=== PATIENT | male | born 1965 | race African-American/Black ===

== ENCOUNTER 2016-08-30 10:49 | Inpatient (IN) | payer OTHER ==
[2016-08-30 12:14] VITALS: BMI 32.5
--- NOTE | 2016-08-30 13:53 | HP ---
CIWA Score - CIWA Score Nausea/Vomitin Muscle Tremors: 3 Anxiety: 3 Agitation: 3 Paroxysmal Sweats: 2 Orientation: 0-Oriented Tacttile Disturbances: 2-Mild Itch/Numbness/Burn Auditory Disturbances: 2-Mild Harshness/Frighten Visual Disturbances: 2-Mild Sensitivity Headache: 2-Mild CIWA-Ar Total Score: 22 Admission ROS BHS - HPI Chief Complaint: I NEED HELP TO STOP DRINKING ALCOHOL,COCAINE Allergies/Adverse Reactions: Allergies Allergy/AdvReac Type Severity Reaction Status Date / Time No Known Allergies Allergy Verified 08/30/16 13:23 History of Present Illness: THIS 51 YEARS OLD MALE WITH ALCOHOL AND DEPENDENCE,WITHDRAWAL SYMPTOM,NEVER BEEN IN DETOX BEFORE MMTP 50 MGS/DAY,LAST MEDICATED TODAY HTN ARTHRITIS BOTH KNEES AMBULATION WITH CANE TYPE 2 DM NICOTINE DEPENDENCE Exam Limitations: No Limitations - Ebola screening Have you traveled outside of the country in the last 21 days: No Have you been sick,other than usual withdrawal symptoms: No - Review of Systems Constitutional: Loss of Appetite, Malaise, Night Sweats, Changes in sleep, Weakness EENT: reports: Nose Congestion Respiratory: reports: No Symptoms reported Cardiac: reports: No Symptoms Reported GI: reports: Diarrhea, Nausea, Vomiting, Abdominal cramping : reports: No Symptoms Reported Musculoskeletal: reports: Back Pain, Muscle Pain Integumentary: reports: Dryness Neuro: reports: Headache, Tremors Endocrine: reports: No Symptoms Reported Hematology: reports: No Symptoms Reported Psychiatric: reports: No Sypmtoms Reported Patient History - Patient Medical History Hx Anemia: No Hx Asthma: Yes (ALBUTRO AND SYMBICORT) Hx Chronic Obstructive Pulmonary Disease (COPD): No Hx Cancer: No Hx Cardiac Disorders: No Hx Congestive Heart Failure: No Hx Hypertension: Yes (ON MED) Hx Hypercholesterolemia: Yes (NO MED) Hx Pacemaker: No HX Cerebrovascular Accident: No Hx Seizures: No Hx Dementia: No Hx Diabetes: Yes (NO MED) Hx Gastrointestinal Disorders: No Hx Liver Disease: No Hx Genitourinary Disorders: No Hx Sexually Transmitted Disorders: No Hx Renal Disease (ESRD): No Hx Thyroid Disease: No Hx Human Immunodeficiency Virus (HIV): No (2014 LAST NEGATIVE) Hx Hepatitis C: No Hx Depression: No Hx Suicide Attempt: No Hx Bipolar Disorder: No Hx Schizophrenia: No Other Medical History: NO SUICIDAL,NO HOMICIDAL - Patient Surgical History Past Surgical History: Yes Other Surgical History: LIPOMA OF FRONTAL AREA RECURRENT - Smoking Cessation Smoking history: Current every day smoker Have you smoked in the past 12 months: Yes Aproximately how many cigarettes per day: 30 Cigars Per Day: 0 Hx Chewing Tobacco Use: No Initiated information on smoking cessation: Yes 'Breaking Loose' booklet given: 08/30/16 - Substance & Tx. History Hx Alcohol Use: Yes Hx Substance Use: Yes Substance Use Type: Alcohol, Cocaine Hx Substance Use Treatment: No - Substances Abused Alcohol Route: Oral Frequency: Daily Amount used: vodka(1-2 pints) Age of first use: 12 Date of Last Use: 08/29/16 Cocaine Route: Smoking Frequency: Daily Amount used: $100 Age of first use: 23 Date of Last Use: 08/29/16 Family Disease History - Family Disease History Family History: Denies Admission Physical Exam BHS - Vital Signs Vital Signs: Vital Signs - 24 hr 08/30/16 12:11 Temperature 98.0 F Pulse Rate 73 Respiratory 20 Rate Blood Pressure 122/72 - Physical General Appearance: Yes: Moderate Distress, Tremorous, Irritable, Sweating, Anxious HEENTM: Yes: Nasal Congestion, Rhinorrhea Respiratory: Yes: Lungs Clear Neck: Yes: Within Normal Limits Breast: Yes: Within Normal Limits Cardiology: Yes: Within Normal Limits, Regular Rhythm, Regular Rate, S1, S2 Abdominal: Yes: Within Normal Limits, Normal Bowel Sounds, Non Tender, Flat, Soft Genitourinary: Yes: Within Normal Limits Back: Yes: Muscle Spasm Musculoskeletal: Yes: Back pain, Muscle Pain Extremities: Yes: Tremors Neurological: Yes: emt dispatcher II-XII NML intact, Fully Oriented, Alert, Motor Strength 5/5 Integumentary: Yes: Dry Lymphatic: Yes: Within Normal Limits - Diagnostic (1) Alcohol dependence with uncomplicated withdrawal Current Visit: Yes Status: Acute (2) Cocaine dependence Current Visit: Yes Status: Acute (3) Methadone maintenance therapy patient Current Visit: Yes Status: Acute (4) Essential hypertension Current Visit: Yes Status: Acute (5) Arthritis of both knees Current Visit: Yes Status: Acute (6) Neuropathy Current Visit: Yes Status: Acute (7) Diabetes mellitus type 2 in obese Current Visit: Yes Status: Acute (8) Use of cane as ambulatory aid Current Visit: Yes Status: Acute (9) Nicotine dependence Current Visit: Yes Status: Acute (10) Asthma Current Visit: Yes Status: Acute Cleared for Admission [facility] - Detox or Rehab [facility] Level of Care: Medically Managed Detox Regimen/Protocol: Librium [facility] Breath Alcohol Content Breath Alcohol Content: 0 Urine Drug Screen - Results Drug Screen Negative: No Urine Drug Screen Results: CASEY-Cocaine, OPI-Opiates, MTD-Methadone, OXY- Oxycodone
[2016-08-30] MEDS ORDERED: MENTHOL/PHENOL 1 EACH UD MM PRN (14:10)
[2016-08-30] MEDS ORDERED: diphenhydrAMINE HCL 50 MG CAPSULE PO PRN (14:10)
[2016-08-30] MEDS ORDERED: MAG HYDROX/AL HYDROX/SIMETH 30 ML UNIT-DOSE CUP PO PRN (14:10)
[2016-08-30] MEDS ORDERED: MAGNESIUM CITRATE 300 ML BOTTLE PO PRN (14:10)
[2016-08-30] MEDS ORDERED: hydrOXYzine PAMOATE 50 MG CAPSULE (FP) PO PRN (14:10)
[2016-08-30] MEDS ORDERED: IBUPROFEN 400 MG TABLET (FP) PO PRN ×2 (14:10→14:20)
[2016-08-30] MEDS ORDERED: chlordiazePOXIDE HCL 25 MG CAPSULE PO PRN (14:10)
[2016-08-30] MEDS ORDERED: guaiFENesin/D-METHORPHAN HB 10 ML UNIT-DOSE CUPS PO PRN (14:10)
[2016-08-30] MEDS ORDERED: MAGNESIUM HYDROX 2400MG/30ML ORAL SUSPENSION 30 ML CUP PO PRN (14:10)
[2016-08-30] MEDS ORDERED: P-EPHED 60MG/TRIPROLIDI 2.5MG TABLET PO PRN (14:10)
[2016-08-30] MEDS ORDERED: ACETAMINOPHEN 325 MG TABLET (FP) PO PRN (14:10)
[2016-08-30] MEDS ORDERED: LOPERAMIDE HCL 2 MG CAPSULE PO PRN (14:10)
[2016-08-30] MEDS ORDERED: ALBUTEROL SO4 6.7 GM HFA INHALER IH PRN (14:13)
[2016-08-30] MEDS ORDERED: chlordiazePOXIDE HCL 25 MG CAPSULE PO ONE (14:45)
[2016-08-30] MEDS: NICOTINE 21 MG/24 HOURS TOPICAL PATCH TD SCH (15:27)
[2016-08-30] MEDS: chlordiazePOXIDE HCL 25 MG CAPSULE PO SCH ×2 (17:29→22:29)
[2016-08-30] MEDS: TOLNAFTATE 1% CREAM 15 GM TUBE TP SCH (22:28)
[2016-08-30] MEDS: GABAPENTIN 300 MG CAPSULE (FP) PO SCH (22:28)
[2016-08-30] MEDS: THIAMINE HCL 100 MG TABLET (FP) PO SCH (22:28)
[2016-08-30] MEDS: BUDESONIDE/FORMETEROL FUMARATE 160/4.5 mcg INHALER IH SCH (22:28)
[2016-08-31] MEDS: chlordiazePOXIDE HCL 25 MG CAPSULE PO SCH ×4 (06:34→22:29)
[2016-08-31] MEDS: GABAPENTIN 300 MG CAPSULE (FP) PO SCH ×3 (06:34→22:27)
[2016-08-31] MEDS ORDERED: METHADONE HCL 40 MG DISPERSABLE TABLET PO ONE (08:49)
[2016-08-31] MEDS: PRENATAL VITAMINS W/ FOLIC ACID TABLET (FP) PO SCH (10:15)
[2016-08-31] MEDS: TOLNAFTATE 1% CREAM 15 GM TUBE TP SCH ×2 (10:15→22:28)
[2016-08-31] MEDS: BUDESONIDE/FORMETEROL FUMARATE 160/4.5 mcg INHALER IH SCH ×2 (10:15→22:28)
[2016-08-31] MEDS: HYDROCHLOROTHIAZIDE 25 MG TABLET (FP) PO SCH (10:15)
[2016-08-31] MEDS: NICOTINE 21 MG/24 HOURS TOPICAL PATCH TD SCH (10:16)
--- NOTE | 2016-08-31 10:38 | PN ---
S CIWA - CIWA Score Nausea/Vomitin Muscle Tremors: 3 Anxiety: 3 Agitation: 3 Paroxysmal Sweats: 1-Minimal Palms Moist Orientation: 0-Oriented Tacttile Disturbances: 1-Very Mild Itch/Numbness Auditory Disturbances: 1-Very Mild Visual Disturbances: 1-Very Mild Sensitivity Headache: 2-Mild CIWA-Ar Total Score: 18 BHS Progress Note (SOAP) Subjective: ALERT,IRRITABLE,ANXIOUS,INTERRUPTED SLEEP,TREMOR Objective: 08/31/16 10:35 Vital Signs Temperature 97.2 F L 08/31/16 09:42 Pulse Rate 83 08/31/16 09:42 Respiratory Rate 20 08/31/16 09:42 Blood Pressure 117/77 08/31/16 09:42 O2 Sat by Pulse Oximetry (%) EKG NSR RIGHT BBB NO CHEST PAIN,NO SOB,NO DIZZINESS Laboratory Last Values POC Glucometer 139 UNITS (()) 08/31/16 06:38 LABS PENDING Assessment: 08/31/16 10:37 WITHDRAWAL SYMPTOM Plan: CONTINUE DETOX,BGM MONITORING
[2016-08-31 11:19] LABS: MCH 27.8 pg (25.7-33.7); MCHC 33.2 g/dl (32.0-35.9); MEAN CELL VOLUME 83.6 fl (80-96); MEAN PLT VOLUME 7.8 fl (7.5-11.1); PLATELET COUNT 327 K/MM3 (134-434); RDW 15.4 % (11.9-15.9); WHITE BLOOD COUNT 8.7 K/mm3 (4.0-10.0)
[2016-08-31 11:35] LABS: ALBUMIN 4.2 g/dl (3.4-5.0); ANION GAP 7 (8-16); CALCIUM 9.3 mg/dL (8.5-10.1); CO2 27 mmol/L (21-32); CREATININE 1.2 mg/dL (0.7-1.3); GLUCOSE,RANDOM 118 mg/dL (74-106); SGOT/AST 13 U/L (15-37); SGPT/ALT 23 U/L (12-78)
[2016-08-31 11:37] LABS: ALK PHOS 53 U/L (45-117); BILIRUBIN,TOTAL 0.6 mg/dL (0.2-1.0); TOT PROT 7.8 g/dl (6.4-8.2)
[2016-08-31] MEDS ORDERED: ALBUTEROL SO4 2.5/IPRATROPIUM 0.5 INH SOL 3 ML VIAL.NEB. NEB PRN (13:11)
[2016-08-31] MEDS: THIAMINE HCL 100 MG TABLET (FP) PO SCH (22:28)
[2016-09-01] MEDS: chlordiazePOXIDE HCL 25 MG CAPSULE PO SCH ×2 (06:02→10:11)
[2016-09-01] MEDS: METHADONE HCL 40 MG DISPERSABLE TABLET PO SCH (06:02)
[2016-09-01] MEDS: GABAPENTIN 300 MG CAPSULE (FP) PO SCH ×3 (06:02→22:45)
[2016-09-01] MEDS: PRENATAL VITAMINS W/ FOLIC ACID TABLET (FP) PO SCH (10:11)
[2016-09-01] MEDS: HYDROCHLOROTHIAZIDE 25 MG TABLET (FP) PO SCH (10:11)
[2016-09-01] MEDS: BUDESONIDE/FORMETEROL FUMARATE 160/4.5 mcg INHALER IH SCH ×2 (10:12→22:45)
[2016-09-01] MEDS: NICOTINE 21 MG/24 HOURS TOPICAL PATCH TD SCH (10:12)
[2016-09-01] MEDS: TOLNAFTATE 1% CREAM 15 GM TUBE TP SCH ×2 (10:13→22:46)
--- NOTE | 2016-09-01 10:34 | PN ---
S CIWA - CIWA Score Nausea/Vomitin Muscle Tremors: 3 Anxiety: 2 Agitation: 2 Paroxysmal Sweats: 1-Minimal Palms Moist Orientation: 0-Oriented Tacttile Disturbances: 1-Very Mild Itch/Numbness Auditory Disturbances: 1-Very Mild Visual Disturbances: 1-Very Mild Sensitivity Headache: 2-Mild CIWA-Ar Total Score: 16 S Progress Note (SOAP) Subjective: ALERT,IRRITABLE,ANXIOUS,INTERRUPTED SLEEP,TREMOR Objective: 09/01/16 10:32 Vital Signs Temperature 97.0 F L 09/01/16 09:48 Pulse Rate 90 09/01/16 09:48 Respiratory Rate 20 09/01/16 09:48 Blood Pressure 142/78 09/01/16 09:48 O2 Sat by Pulse Oximetry (%) 09/01/16 10:32 Laboratory Last Values WBC 8.7 K/mm3 (4.0-10.0) 08/31/16 06:00 RBC 4.66 M/mm3 (4.00-5.60) 08/31/16 06:00 Hgb 12.9 GM/dL (11.7-16.9) 08/31/16 06:00 Hct 38.9 % (35.4-49) 08/31/16 06:00 MCV 83.6 fl (80-96) 08/31/16 06:00 MCHC 33.2 g/dl (32.0-35.9) 08/31/16 06:00 RDW 15.4 % (11.9-15.9) 08/31/16 06:00 Plt Count 327 K/MM3 (134-434) 08/31/16 06:00 MPV 7.8 fl (7.5-11.1) 08/31/16 06:00 Sodium 142 mmol/L (136-145) 08/31/16 06:00 Potassium 3.8 mmol/L (3.5-5.1) 08/31/16 06:00 Chloride 108 mmol/L (98-107) H 08/31/16 06:00 Carbon Dioxide 27 mmol/L (21-32) 08/31/16 06:00 Anion Gap 7 (8-16) L 08/31/16 06:00 BUN 19 mg/dL (7-18) H 08/31/16 06:00 Creatinine 1.2 mg/dL (0.7-1.3) 08/31/16 06:00 Creat Clearance w eGFR > 60 (>60) 08/31/16 06:00 POC Glucometer 138 UNITS (()) 09/01/16 06:00 Random Glucose 118 mg/dL (74-106) H 08/31/16 06:00 Calcium 9.3 mg/dL (8.5-10.1) 08/31/16 06:00 Total Bilirubin 0.6 mg/dL (0.2-1.0) 08/31/16 06:00 AST 13 U/L (15-37) L 08/31/16 06:00 ALT 23 U/L (12-78) 08/31/16 06:00 Alkaline Phosphatase 53 U/L (45-117) 08/31/16 06:00 Total Protein 7.8 g/dl (6.4-8.2) 08/31/16 06:00 Albumin 4.2 g/dl (3.4-5.0) 08/31/16 06:00 RPR Titer Nonreactive (NONREACTIVE) 08/31/16 06:00 Assessment: 09/01/16 10:33 WITHDRAWAL SYMPTOM Plan: CONTINUE DETOX,PATIENT REQUESTED REGULAR DIET,BGM MONITORING
[2016-09-01] MEDS: chlordiazePOXIDE 5 MG CAPSULE PO SCH ×2 (17:27→22:46)
[2016-09-01] MEDS: THIAMINE HCL 100 MG TABLET (FP) PO SCH (22:46)
[2016-09-02] MEDS: METHADONE HCL 40 MG DISPERSABLE TABLET PO SCH (05:44)
[2016-09-02] MEDS: chlordiazePOXIDE 5 MG CAPSULE PO SCH ×2 (05:45→10:30)
[2016-09-02] MEDS: GABAPENTIN 300 MG CAPSULE (FP) PO SCH ×2 (07:24→14:51)
[2016-09-02] MEDS: HYDROCHLOROTHIAZIDE 25 MG TABLET (FP) PO SCH (10:29)
[2016-09-02] MEDS: PRENATAL VITAMINS W/ FOLIC ACID TABLET (FP) PO SCH (10:29)
[2016-09-02] MEDS: NICOTINE 21 MG/24 HOURS TOPICAL PATCH TD SCH (10:30)
[2016-09-02] MEDS: BUDESONIDE/FORMETEROL FUMARATE 160/4.5 mcg INHALER IH SCH (10:30)
[2016-09-02] MEDS: TOLNAFTATE 1% CREAM 15 GM TUBE TP SCH (10:30)
[2016-09-02 11:06] LABS: URINE APPEARANCE CLOUDY; URINE BILIRUBIN NEGATIVE (NEGATIVE); URINE BLOOD NEGATIVE (NEGATIVE); URINE COLOR LTYELLOW; URINE GLUCOSE (UA) 3+ (NEGATIVE); URINE KETONE NEGATIVE (NEGATIVE); URINE LEUK ESTERASE NEGATIVE (NEGATIVE); URINE NITRITE NEGATIVE (NEGATIVE); URINE PROTEIN NEGATIVE (NEGATIVE); URINE UROBILINOGEN 2.0 E.U/dl E.U./dl (0.2-1.0)
[2016-09-02] MEDS ORDERED: LIDOCAINE 5% TOPICAL PATCH TP SCH (12:45)
--- NOTE | 2016-09-02 12:49 | PN ---
BHS Progress Note (SOAP) Subjective: SWEATING,INTERRUPTED SLEEP,RESTLESS.SEVERE JOINT PAIN. Objective: 09/02/16 12:49 Vital Signs - 8 hr 09/02/16 09/02/16 06:12 09:36 Temperature 98.1 F 98.7 F Pulse Rate 79 86 Respiratory 18 18 Rate Blood Pressure 147/86 124/77 Laboratory Tests 08/30/16 08/31/16 08/31/16 13:56 06:00 06:00 WBC 8.7 RBC 4.66 Hgb 12.9 Hct 38.9 MCV 83.6 MCHC 33.2 RDW 15.4 Plt Count 327 MPV 7.8 Sodium 142 Potassium 3.8 Chloride 108 H Carbon Dioxide 27 Anion Gap 7 L BUN 19 H Creatinine 1.2 Creat Clearance w eGFR > 60 POC Glucometer 127 Random Glucose 118 H Calcium 9.3 Total Bilirubin 0.6 AST 13 L ALT 23 Alkaline Phosphatase 53 Total Protein 7.8 Albumin 4.2 Urine Color Urine Appearance Urine pH Ur Specific Goodman Urine Protein Urine Glucose (UA) Urine Ketones Urine Blood Urine Nitrite Urine Bilirubin Urine Urobilinogen Ur Leukocyte Esterase RPR Titer 09/02/16 09/02/16 05:43 07:00 WBC RBC Hgb Hct MCV MCHC RDW Plt Count MPV Sodium Potassium Chloride Carbon Dioxide Anion Gap BUN Creatinine Creat Clearance w eGFR POC Glucometer 243 Random Glucose Calcium Total Bilirubin AST ALT Alkaline Phosphatase Total Protein Albumin Urine Color Ltyellow Urine Appearance Cloudy Urine pH 7.0 Ur Specific Goodman 1.020 Urine Protein Negative Urine Glucose (UA) 3+ H Urine Ketones Negative Urine Blood Negative Urine Nitrite Negative Urine Bilirubin Negative Urine Urobilinogen 2.0 e.u/dl Ur Leukocyte Esterase Negative RPR Titer LABS NOTED Assessment: 09/02/16 12:50 WITHDRAWAL SX. Plan: CONTINUE DETOX LIDODERM PATCH TO JOINTS
[2016-09-02 15:21] VITALS: BP 115/72; PULSE 74; TEMP 97.1
--- NOTE | 2016-09-02 15:31 | DS ---
[facility] Detox Discharge Summary Admission Date: 08/30/16 Discharge Date: 09/02/16 - History Present History: Alcohol Dependence, Cocaine Dependence, MMTP Pertinent Past History: ASTHMA - Physical Exam Results Vital Signs: Vital Signs Temperature 97.1 F L 09/02/16 15:20 Pulse Rate 74 09/02/16 15:20 Respiratory Rate 18 09/02/16 15:20 Blood Pressure 115/72 09/02/16 15:20 O2 Sat by Pulse Oximetry (%) Pertinent Admission Physical Exam Findings: WITHDRAWAL SX. Laboratory Tests 08/30/16 08/31/16 08/31/16 13:56 06:00 06:00 WBC 8.7 RBC 4.66 Hgb 12.9 Hct 38.9 MCV 83.6 MCHC 33.2 RDW 15.4 Plt Count 327 MPV 7.8 Sodium 142 Potassium 3.8 Chloride 108 H Carbon Dioxide 27 Anion Gap 7 L BUN 19 H Creatinine 1.2 Creat Clearance w eGFR > 60 POC Glucometer 127 Random Glucose 118 H Calcium 9.3 Total Bilirubin 0.6 AST 13 L ALT 23 Alkaline Phosphatase 53 Total Protein 7.8 Albumin 4.2 Urine Color Urine Appearance Urine pH Ur Specific [place] Urine Protein Urine Glucose (UA) Urine Ketones Urine Blood Urine Nitrite Urine Bilirubin Urine Urobilinogen Ur Leukocyte Esterase RPR Titer 08/31/16 08/31/16 09/01/16 06:00 06:38 06:00 WBC RBC Hgb Hct MCV MCHC RDW Plt Count MPV Sodium Potassium Chloride Carbon Dioxide Anion Gap BUN Creatinine Creat Clearance w eGFR POC Glucometer 139 138 Random Glucose Calcium Total Bilirubin AST ALT Alkaline Phosphatase Total Protein Albumin Urine Color Urine Appearance Urine pH Ur Specific [place] Urine Protein Urine Glucose (UA) Urine Ketones Urine Blood Urine Nitrite Urine Bilirubin Urine Urobilinogen Ur Leukocyte Esterase RPR Titer Nonreactive 09/02/16 09/02/16 05:43 07:00 WBC RBC Hgb Hct MCV MCHC RDW Plt Count MPV Sodium Potassium Chloride Carbon Dioxide Anion Gap BUN Creatinine Creat Clearance w eGFR POC Glucometer 243 Random Glucose Calcium Total Bilirubin AST ALT Alkaline Phosphatase Total Protein Albumin Urine Color Ltyellow Urine Appearance Cloudy Urine pH 7.0 Ur Specific [place] 1.020 Urine Protein Negative Urine Glucose (UA) 3+ H Urine Ketones Negative Urine Blood Negative Urine Nitrite Negative Urine Bilirubin Negative Urine Urobilinogen 2.0 e.u/dl Ur Leukocyte Esterase Negative RPR Titer LABS NOTED - Treatment Hospital Course: Detox Protocol Followed, Detoxed Safely, Discharged Condition Good - Medication Discharge Medications: Ambulatory Orders Albuterol Sulfate Inhaler - [Ventolin Hfa Inhaler -] 1 - 2 inh PO QID 08/30/16 Budesonide/Formeterol Fumarate [SYMBICORT 160/4.5mcg -] 1 inh PO BID 08/30/16 Gabapentin 300 mg PO TID 08/30/16 Halobetasol Prop 0.05% Tp Crm [Ultravate (Nf)] 1 applic TP DAILY 08/30/16 Ibuprofen 800 mg PO Q6H 08/30/16 Ketoconazole 2% Cream [Nizoral 2% Cream -] 1 applic TP DAILY 08/30/16 Tolnaftate 1% Cream [Tinactin 1% Cream -] 1 applic TP BID 08/30/16 - Diagnosis (1) Alcohol dependence with uncomplicated withdrawal Current Visit: Yes Status: Acute (2) Arthritis of both knees Current Visit: Yes Status: Acute (3) Asthma Current Visit: Yes Status: Acute Qualifiers: Asthma severity: mild intermittent Asthma complication type: uncomplicated Qualified Code(s): J45.20 - Mild intermittent asthma, uncomplicated (4) Cocaine dependence Current Visit: Yes Status: Acute Qualifiers: Substance use status: uncomplicated Qualified Code(s): F14.20 - Cocaine dependence, uncomplicated (5) Diabetes mellitus type 2 in obese Current Visit: Yes Status: Acute (6) Essential hypertension Current Visit: Yes Status: Acute (7) Methadone maintenance therapy patient Current Visit: Yes Status: Acute (8) Nicotine dependence Current Visit: Yes Status: Acute Qualifiers: Nicotine product type: cigarettes Substance use status: uncomplicated Qualified Code(s): F17.210 - Nicotine dependence, cigarettes, uncomplicated - AMA Did Patient Leave Against Medical Advice: No
[2016-09-02] MEDS ORDERED: chlordiazePOXIDE HCL 10 MG CAPSULE PO SCH (17:00)
== END 2016-09-02 16:32 | disposition home or self-care (01) | DRG 773 ==
LOC: YASAS 10:49 → Y3N 14:15
PROVIDERS: ADMIT Internal Medicine; ATTEND Internal Medicine
PROC: HZ2ZZZZ Detoxification Services for Substance Abuse Treatment (ICD-10-PCS; principal; 2016-08-30)
DX: F10.230 Alcohol dependence with withdrawal, uncomplicated (principal); F11.20 Opioid dependence, uncomplicated; F14.20 Cocaine dependence, uncomplicated; F17.210 Nicotine dependence, cigarettes, uncomplicated; M13.862 Other specified arthritis, left knee; M13.861 Other specified arthritis, right knee; E11.9 Type 2 diabetes mellitus without complications; E78.00 Pure hypercholesterolemia, unspecified; E66.9 Obesity, unspecified; Z68.32 Body mass index [BMI] 32.0-32.9, adult; I10 Essential (primary) hypertension; I45.10 Unspecified right bundle-branch block; G62.9 Polyneuropathy, unspecified; R26.2 Difficulty in walking, not elsewhere classified
CPT/HCPCS: 36415; 80053; 81003; 85027; 86593; 93005; 93010; 94640